=== PATIENT | female | born 1985 | race Caucasian/White ===

== ENCOUNTER 2017-01-09 09:26 | Emergency (ER) | payer MEDICAID ==
[~2017-01-09] VITALS: Ht 172.7 cm; Wt 80.7 kg
[2017-01-09 10:11] LABS: microscopic required? NO
[2017-01-09 10:40] LABS: BASOPHIL % 0.5 % (0-2); PLATELET COUNT 267 x10^3mcL (130-400); RED CELL DISTRIBUTION WIDTH 13.5 % (11.5-14.5)
[2017-01-09 10:52] LABS: urine erythrocyte NEGATIVE (NEGATIVE)
[2017-01-09 13:35] VITALS: BP 138/89
== END 2017-01-09 13:35 | disposition home or self-care (01) ==
LOC: ED 09:26
PROVIDERS: Emergency Medicine
DX: O20.0 Threatened abortion (principal); Z3A.01 Less than 8 weeks gestation of pregnancy